=== PATIENT | male | born 1960 | race African-American/Black ===

== ENCOUNTER 2019-03-21 18:32 | Inpatient (IN) ==
[2019-03-22 00:50] LABS: Basophils # 0.1 10*3/uL (0.0-0.2); Basophils % 0.5 % (0.0-0.8); Eosinophils # 0.7 10*3/uL (0.0-0.87); Eosinophils % 4.7 % (0.00-10.9); Hematocrit 31.7 VOL% (42.0-52.0); Hemoglobin 9.9 GM/DL (14.0-18.0); Immature Granulocytes % 0.7 %; Lymphocytes # 1.1 10*3/uL (1.4-4.0); Lymphocytes % 7.2 % (21.2-54.2); Mean Corpuscular HGB Conc 31.2 GM/DL (32-36); Mean Corpuscular Volume 91.4 FL (87-102); Monocytes % 4.5 % (1.7-12.7); Neutrophils % 82.4 % (38.7-73.9); Platelet Count 174 T/CUMM (130-400); Red Blood Count 3.47 MC/CUMM (3.8-5.5); Red Cell Distribution Width 16.5 % (9.3-17.3); White Blood Count 14.6 T/CUMM (4-12)
[2019-03-22 01:18] LABS: Calcium 7.4 MG/DL (8.5-10.1); Osmolality,Calculated 311.4 MOS/KG (273-304)
[2019-03-22 01:21] LABS: CKMB % 1.8 %; Troponin I 0.041 NG/ML (0.00-0.045)
[2019-03-22] MEDS ORDERED: INSULIN REGULAR 100 UNIT/ML IV ONE ×2 (01:56→03:04)
[2019-03-22] MEDS ORDERED: FUROSEMIDE 100 MG/10 ML VIAL IV STA (01:56)
[2019-03-22] MEDS ORDERED: LEVOFLOXACIN INJ 750 MG in PREMIX 1 EACH IV STA (01:57)
[2019-03-22] MEDS ORDERED: FUROSEMIDE 40 MG/4 ML VIAL ONE (02:01)
[2019-03-22 02:33] LABS: Apearance,Urine CLEAR (Clear); Bacteria,Urine Occasional /HPF (Few); Bilirubin,Urine Negative (Negative); Blood, Urine Moderate mg/dL (Negative); Glucose,Urine (UA) >=500 mg/dL (Negative); Ketones,Urine 20 mg/dL (Negative); Mucus,Urine Occasional /LPF (Occasional); Nitrite,Urine Negative (Negative); Protein,Urine 30 MG/DL; RBC,Urine 1 /HPF (0-4); Squamous Epithelial Cell,Urine Occasional /HPF (0-10); Urine Color Straw (Yellow); Urine Specific Gravity 1.018 (1.001-1.035); Urine Urobilinogen < 2.0 EU/DL (0.2-1.0); WBC,Urine 1 /HPF (0-6)
[2019-03-22 02:52] LABS: Barbiturates Screen,Urine Negative (Negative); Benzodiazepines Screen,Urine Negative (Negative); Cannabinoid Screen,Urine Negative (Negative); Opiate Screen,Urine Negative (Negative); Phencyclidine Screen,Urine Negative (Negative)
[2019-03-22] MEDS ORDERED: POTASSIUM CHLORIDE RIDER 10 MEQ in PREMIX 1 EACH IV PRN ×2 (03:04→05:16)
[2019-03-22] MEDS ORDERED: SODIUM CHLORIDE 0.9% 1,000 ML IV ONE (03:04)
[2019-03-22] MEDS ORDERED: SODIUM BICARB INJ 100 MEQ in STERILE WATER INJ 400 ML IV PRN (03:04)
[2019-03-22] MEDS ORDERED: SODIUM PHOSPHATE INJ 23.8 MMOL in SODIUM CHLORIDE 0.9% 250 ML IV PRN (03:04)
[2019-03-22] MEDS ORDERED: MAGNESIUM SULF RIDER 4 GM in PREMIX 1 EACH IV PRN (03:04)
[2019-03-22] MEDS ORDERED: DEXTROSE 10% 250 ML BAG IV PRN ×2 (03:04)
[2019-03-22 03:16] LABS: ABG Base Excess -12.6 MMOL/L (-2.5-2.5); ABG HCO3 14.4 MMOL/L (20-26); ABG Oxygen Saturation 85.8 % (95-100); ABG PCO2 24.6 MM HG (35-48); ABG PH 7.313 (7.35-7.45); ABG PO2 53.8 MM HG (80-95); ABG TCO2 11.5 MMOL/L (23-27); Allen Test Positive
[2019-03-22 03:30] LABS: Osmolality,Calculated 310.1 MOS/KG (273-304)
[2019-03-22] MEDS ORDERED: INSULIN REGULAR DRIP 100 ML IV SCH (03:30)
[2019-03-22 03:38] LABS: Calcium 7.1 MG/DL (8.5-10.1)
[2019-03-22] MEDS ORDERED: INFLUENZA VIRUS VACCINE 0.5 ML SYRINGE IM ONE (04:10)
[2019-03-22 04:28] LABS: Basophils # 0.1 10*3/uL (0.0-0.2); Basophils % 0.4 % (0.0-0.8); Eosinophils # 0.5 10*3/uL (0.0-0.87); Eosinophils % 3.1 % (0.00-10.9); Hematocrit 29.9 VOL% (42.0-52.0); Hemoglobin 9.6 GM/DL (14.0-18.0); Immature Granulocytes % 0.4 %; Immature Granulocytes Absolute 0.06 #; Lymphocytes % 5.9 % (21.2-54.2); Mean Corpuscular HGB Conc 32.1 GM/DL (32-36); Mean Corpuscular Volume 89.3 FL (87-102); Neutrophils % 85.2 % (38.7-73.9); Platelet Count 169 T/CUMM (130-400); Red Blood Count 3.35 MC/CUMM (3.8-5.5); Red Cell Distribution Width 16.2 % (9.3-17.3); White Blood Count 16.9 T/CUMM (4-12)
[2019-03-22 04:54] LABS: Apearance,Urine CLEAR (Clear); Bacteria,Urine Occasional /HPF (Few); Bilirubin,Urine Negative (Negative); Blood, Urine Small mg/dL (Negative); Glucose,Urine (UA) >=500 mg/dL (Negative); Ketones,Urine 5 mg/dL (Negative); Mucus,Urine Occasional /LPF (Occasional); Nitrite,Urine Negative (Negative); Protein,Urine Negative; RBC,Urine 1 /HPF (0-4); Urine Color Colorless (Yellow); Urine Specific Gravity 1.007 (1.001-1.035); Urine Urobilinogen < 2.0 EU/DL (0.2-1.0); WBC,Urine <1 /HPF (0-6)
[2019-03-22 04:59] LABS: Calcium 7.1 MG/DL (8.5-10.1); Osmolality,Calculated 305.1 MOS/KG (273-304)
[2019-03-22] MEDS: SODIUM CHLORIDE 0.9% 1,000 ML IV SCH ×2 (05:12→07:11)
[2019-03-22] MEDS: POTASSIUM CHLORIDE RIDER 20 MEQ in PREMIX 1 EACH IV PRN ×2 (05:43→09:31)
[2019-03-22 05:52] LABS: ABG Base Excess -9.9 MMOL/L (-2.5-2.5); ABG HCO3 16.4 MMOL/L (20-26); ABG Oxygen Saturation 93.8 % (95-100); ABG PCO2 27.9 MM HG (35-48); ABG PH 7.334 (7.35-7.45); ABG PO2 69.5 MM HG (80-95); ABG TCO2 13.8 MMOL/L (23-27); Allen Test Positive; Pt O2 Delivery Device Venturi Mask
[2019-03-22] MEDS ORDERED: SODIUM CHLORIDE 0.9% 1,000 ML IV SCH (08:05)
[2019-03-22 08:17] LABS: Pt O2 Delivery Device Venturi Mask
[2019-03-22 08:18] LABS: ABG HCO3 18.7 MMOL/L (20-26); ABG Oxygen Saturation 99.3 % (95-100); ABG PCO2 36.4 MM HG (35-48); ABG PH 7.314 (7.35-7.45); ABG TCO2 17.3 MMOL/L (23-27)
[2019-03-22] MEDS: FUROSEMIDE 40 MG/4 ML VIAL IV SCH ×2 (08:20→16:19)
[2019-03-22 08:49] LABS: Calcium 6.8 MG/DL (8.5-10.1); Osmolality,Calculated 302.3 MOS/KG (273-304)
[2019-03-22 10:24] LABS: ABG Base Excess -5.3 MMOL/L (-2.5-2.5); ABG HCO3 19.9 MMOL/L (20-26); ABG Oxygen Saturation 87.9 % (95-100); ABG PCO2 33.9 MM HG (35-48); ABG PH 7.366 (7.35-7.45); ABG PO2 52.6 MM HG (80-95)
[2019-03-22 12:13] LABS: Osmolality,Calculated 286.7 MOS/KG (273-304)
[2019-03-22] MEDS ORDERED: SODIUM CHLOR 0.9% KCL 20 MEQ 20 MEQ/1,000 ML BAG IV SCH (13:30)
[2019-03-22] MEDS ORDERED: SKIN HEALING OINT (AQUAPHOR) 50 GM TUBE TOP PRN (14:21)
[2019-03-22 15:33] LABS: Calcium 6.7 MG/DL (8.5-10.1); Osmolality,Calculated 286.4 MOS/KG (273-304)
[2019-03-22] MEDS: INSULIN LISPRO 100 UNIT/ML SUBCUT SCH ×2 (17:00→21:20)
[2019-03-22] MEDS ORDERED: SODIUM CHLORIDE 0.45% 1,000 ML IV SCH (20:05)
[2019-03-22 20:07] LABS: Calcium 6.8 MG/DL (8.5-10.1); Osmolality,Calculated 289.1 MOS/KG (273-304)
[2019-03-22] MEDS ORDERED: QUEtiapine 100 MG TABLET PO SCH (21:00)
[2019-03-22] MEDS: INSULIN GLARGINE 100 UNIT/ML SUBCUT SCH (21:19)
[2019-03-22 23:57] LABS: Calcium 6.7 MG/DL (8.5-10.1); Osmolality,Calculated 290.1 MOS/KG (273-304)
[2019-03-23 05:14] LABS: ABG Base Excess -4.8 MMOL/L (-2.5-2.5); ABG HCO3 20.2 MMOL/L (20-26); ABG Oxygen Saturation 81.4 % (95-100); ABG PCO2 34.4 MM HG (35-48); ABG PH 7.369 (7.35-7.45); ABG PO2 46.4 MM HG (80-95); ABG TCO2 18.6 MMOL/L (23-27); Allen Test Positive
[2019-03-23 05:26] LABS: Calcium 6.7 MG/DL (8.5-10.1)
[2019-03-23 06:08] LABS: Allen Test Positive
[2019-03-23 06:14] LABS: ABG Base Excess -4.3 MMOL/L (-2.5-2.5); ABG HCO3 20.8 MMOL/L (20-26); ABG Oxygen Saturation 97.3 % (95-100); ABG PCO2 34.3 MM HG (35-48); ABG PH 7.378 (7.35-7.45); ABG PO2 85.5 MM HG (80-95); ABG TCO2 18.9 MMOL/L (23-27)
[2019-03-23] MEDS: PIOGLITAZONE 15 MG TABLET PO SCH (09:07)
[2019-03-23] MEDS: INSULIN LISPRO 100 UNIT/ML SUBCUT SCH ×4 (09:07→20:15)
[2019-03-23] MEDS: cefTRIAXone 1,000 MG in SYRINGE 1 EACH IV SCH (09:07)
[2019-03-23] MEDS ORDERED: FUROSEMIDE 40 MG/4 ML VIAL IV ONE (09:35)
[2019-03-23] MEDS: AZITHROMYCIN INJ 250 MG in SODIUM CHLORIDE 0.9% 150 ML IV SCH (10:31)
[2019-03-23 12:15] LABS: Basophils % 0.2 % (0.0-0.8); Eosinophils # 1.9 10*3/uL (0.0-0.87); Eosinophils % 14.1 % (0.00-10.9); Hematocrit 26.2 VOL% (42.0-52.0); Hemoglobin 8.5 GM/DL (14.0-18.0); Immature Granulocytes % 0.4 %; Immature Granulocytes Absolute 0.05 #; Lymphocytes # 0.8 10*3/uL (1.4-4.0); Lymphocytes % 6.2 % (21.2-54.2); Mean Corpuscular HGB Conc 32.4 GM/DL (32-36); Mean Corpuscular Volume 87.6 FL (87-102); Monocytes % 4.6 % (1.7-12.7); Neutrophils % 74.5 % (38.7-73.9); Platelet Count 140 T/CUMM (130-400); Red Blood Count 2.99 MC/CUMM (3.8-5.5); White Blood Count 13.2 T/CUMM (4-12)
[2019-03-23 14:02] LABS: Eosinophils 12 % (0-10); Lymphocytes 5 % (20-55); Segmented Neutrophils 80 % (50-85); Total Cells Counted 100
[2019-03-23 14:03] LABS: Acanthocytes 1+; Anisocytosis 1+; Atypical Lymphocytes 1+; Platelet Estimate Adequate; Poikilocytosis 1+
[2019-03-23 16:26] LABS: ABG Base Excess -3.5 MMOL/L (-2.5-2.5); ABG HCO3 21.4 MMOL/L (20-26); ABG Oxygen Saturation 92.7 % (95-100); ABG PCO2 36.4 MM HG (35-48); ABG PH 7.375 (7.35-7.45); ABG PO2 64.4 MM HG (80-95); ABG TCO2 19.9 MMOL/L (23-27); Pt O2 Delivery Device BIPAP
[2019-03-23] MEDS: GABAPENTIN 300 MG CAPSULE PO SCH (20:15)
[2019-03-23] MEDS: SUCRALFATE 1 GM TABLET PO SCH (20:15)
[2019-03-23] MEDS: INSULIN GLARGINE 100 UNIT/ML SUBCUT SCH (20:15)
[2019-03-23] MEDS: DOCUSATE SODIUM 100 MG CAPSULE PO SCH (20:15)
[2019-03-24] MEDS ORDERED: FUROSEMIDE 40 MG/4 ML VIAL IV ONE (00:14)
[2019-03-24 01:31] LABS: ABG Base Excess -4.6 MMOL/L (-2.5-2.5); ABG HCO3 20.6 MMOL/L (20-26); ABG Oxygen Saturation 95.2 % (95-100); ABG PCO2 39.6 MM HG (35-48); ABG PH 7.332 (7.35-7.45); ABG PO2 75.8 MM HG (80-95); ABG TCO2 19.5 MMOL/L (23-27); Allen Test Positive; Pt O2 Delivery Device Other
[2019-03-24 04:34] LABS: Basophils % 0.3 % (0.0-0.8); Eosinophils # 2.4 10*3/uL (0.0-0.87); Eosinophils % 22.5 % (0.00-10.9); Hemoglobin 7.9 GM/DL (14.0-18.0); Immature Granulocytes % 0.3 %; Immature Granulocytes Absolute 0.03 #; Lymphocytes % 9.6 % (21.2-54.2); Mean Corpuscular HGB Conc 31.6 GM/DL (32-36); Mean Corpuscular Volume 89.6 FL (87-102); Mean Platelet Volume 12.1 FL (9.6-12.0); Monocytes % 3.7 % (1.7-12.7); Neutrophils % 63.6 % (38.7-73.9); Platelet Count 131 T/CUMM (130-400); Red Blood Count 2.79 MC/CUMM (3.8-5.5); Red Cell Distribution Width 17.4 % (9.3-17.3); White Blood Count 10.5 T/CUMM (4-12)
[2019-03-24 04:59] LABS: Eosinophils 22 % (0-10); Lymphocytes 10 % (20-55); Platelet Estimate Decreased; Segmented Neutrophils 66 % (50-85); Total Cells Counted 100
[2019-03-24] MEDS: PENTOXIFYLLINE 400 MG TABLET PO SCH ×3 (08:32→16:44)
[2019-03-24] MEDS: SUCRALFATE 1 GM TABLET PO SCH ×4 (08:33→21:55)
[2019-03-24] MEDS: GABAPENTIN 300 MG CAPSULE PO SCH ×4 (08:33→21:56)
[2019-03-24] MEDS: DOCUSATE SODIUM 100 MG CAPSULE PO SCH ×2 (08:33→21:55)
[2019-03-24] MEDS: TAMSULOSIN 0.4 MG CAPSULE PO SCH (08:33)
[2019-03-24] MEDS: PIOGLITAZONE 15 MG TABLET PO SCH (08:33)
[2019-03-24] MEDS: INSULIN LISPRO 100 UNIT/ML SUBCUT SCH ×4 (08:33→21:56)
[2019-03-24] MEDS: cefTRIAXone 1,000 MG in SYRINGE 1 EACH IV SCH (08:35)
[2019-03-24 10:07] LABS: ABG Base Excess -5.5 MMOL/L (-2.5-2.5); ABG HCO3 20.2 MMOL/L (20-26); ABG Oxygen Saturation 96.6 % (95-100); ABG PCO2 40.2 MM HG (35-48); ABG PH 7.318 (7.35-7.45); ABG PO2 92.3 MM HG (80-95); ABG TCO2 21.4 MMOL/L (23-27); Pt O2 Delivery Device Other
[2019-03-24] MEDS: methylPREDNISolone SOD SUC 40 MG/1 ML VIAL IV SCH ×3 (11:29→21:56)
[2019-03-24] MEDS: LACTATED RINGERS 1,000 ML IV SCH (11:31)
[2019-03-24] MEDS: AZITHROMYCIN INJ 250 MG in SODIUM CHLORIDE 0.9% 150 ML IV SCH (11:57)
[2019-03-24 12:29] LABS: HIV Antigen/Antibody Result Nonreactive (Nonreactive)
[2019-03-24] MEDS: INSULIN GLARGINE 100 UNIT/ML SUBCUT SCH (21:56)
[2019-03-25] MEDS: LACTATED RINGERS 1,000 ML IV SCH ×3 (03:00→17:49)
[2019-03-25] MEDS: ALBUTEROL/IPRATROPIUM 3 ML NEB RESP TX PRN ×2 (03:14→03:23)
[2019-03-25 04:41] LABS: Hematocrit 25.8 VOL% (42.0-52.0); Immature Granulocytes % 0.3 %; Immature Granulocytes Absolute 0.02 #; Lymphocytes # 0.7 10*3/uL (1.4-4.0); Lymphocytes % 10.7 % (21.2-54.2); Mean Corpuscular Volume 90.2 FL (87-102); Mean Platelet Volume 12.3 FL (9.6-12.0); Monocytes % 0.3 % (1.7-12.7); Neutrophils % 88.7 % (38.7-73.9); Platelet Count 138 T/CUMM (130-400); Red Blood Count 2.86 MC/CUMM (3.8-5.5); Red Cell Distribution Width 17.3 % (9.3-17.3); White Blood Count 6.3 T/CUMM (4-12)
[2019-03-25] MEDS: methylPREDNISolone SOD SUC 40 MG/1 ML VIAL IV SCH ×4 (05:09→21:57)
[2019-03-25] MEDS: MAGNESIUM SULF RIDER 2 GM in PREMIX 1 EACH IV PRN (05:22)
[2019-03-25 06:12] LABS: Calcium 7.1 MG/DL (8.5-10.1)
[2019-03-25 06:14] LABS: Albumin 1.3 G/DL (3.4-5.0); Blood Urea Nitrogen 26 MG/DL (7-18); Glucose 337 MG/DL (74-106); Osmolality,Calculated 303.8 MOS/KG (273-304)
[2019-03-25 06:16] LABS: Alanine Aminotransferase 15 U/L (16-61); Aspartate Amino Transferase 18 U/L (0-37); Estimated Glom Filtration Rate 30 ML/MIN
[2019-03-25 06:18] LABS: Bilirubin,Total < 0.39 MG/DL (0.2-1.0); Total Protein 5.8 G/DL (6.4-8.3)
[2019-03-25 06:19] LABS: Alkaline Phosphatase 129 U/L (45-117)
[2019-03-25] MEDS: TAMSULOSIN 0.4 MG CAPSULE PO SCH (08:56)
[2019-03-25] MEDS: DOCUSATE SODIUM 100 MG CAPSULE PO SCH ×2 (08:56→21:59)
[2019-03-25] MEDS: GABAPENTIN 300 MG CAPSULE PO SCH ×4 (08:56→21:59)
[2019-03-25] MEDS: PENTOXIFYLLINE 400 MG TABLET PO SCH ×3 (08:56→16:12)
[2019-03-25] MEDS: SUCRALFATE 1 GM TABLET PO SCH ×4 (08:57→21:59)
[2019-03-25] MEDS: INSULIN LISPRO 100 UNIT/ML SUBCUT SCH ×2 (08:57→12:00)
[2019-03-25] MEDS: cefTRIAXone 1,000 MG in SYRINGE 1 EACH IV SCH (08:57)
[2019-03-25] MEDS: PIOGLITAZONE 15 MG TABLET PO SCH (08:57)
[2019-03-25] MEDS: AZITHROMYCIN INJ 250 MG in SODIUM CHLORIDE 0.9% 150 ML IV SCH (10:49)
[2019-03-25] MEDS: INSULIN REGULAR DRIP 100 ML IV PRN ×2 (12:01→23:13)
[2019-03-25] MEDS: SODIUM CHLORIDE 0.45% 1,000 ML IV SCH (17:48)
[2019-03-25] MEDS: INSULIN GLARGINE 100 UNIT/ML SUBCUT SCH (21:58)
[2019-03-25] MEDS: MENTHOL/ZINC OXIDE OINT 71 GM JAR TOP SCH (22:10)
[2019-03-26] MEDS: methylPREDNISolone SOD SUC 40 MG/1 ML VIAL IV SCH ×4 (04:35→22:17)
[2019-03-26 05:44] LABS: Hematocrit 26.5 VOL% (42.0-52.0); Hemoglobin 8.3 GM/DL (14.0-18.0); Immature Granulocytes % 0.6 %; Immature Granulocytes Absolute 0.06 #; Lymphocytes # 0.9 10*3/uL (1.4-4.0); Lymphocytes % 9.6 % (21.2-54.2); Mean Corpuscular HGB Conc 31.3 GM/DL (32-36); Mean Platelet Volume 12.2 FL (9.6-12.0); Neutrophils % 87.8 % (38.7-73.9); Platelet Count 177 T/CUMM (130-400); Red Blood Count 2.88 MC/CUMM (3.8-5.5); Red Cell Distribution Width 17.2 % (9.3-17.3); White Blood Count 9.6 T/CUMM (4-12)
[2019-03-26 06:05] LABS: Calcium 7.1 MG/DL (8.5-10.1); Osmolality,Calculated 291.4 MOS/KG (273-304)
[2019-03-26 06:09] LABS: Albumin 1.4 G/DL (3.4-5.0); Bilirubin,Total 0.4 MG/DL (0.2-1.0); Calcium 7.1 MG/DL (8.5-10.1); Osmolality,Calculated 287.7 MOS/KG (273-304); Total Protein 5.6 G/DL (6.4-8.3)
[2019-03-26] MEDS: PENTOXIFYLLINE 400 MG TABLET PO SCH ×3 (06:41→17:06)
[2019-03-26] MEDS: SUCRALFATE 1 GM TABLET PO SCH ×4 (06:41→21:08)
[2019-03-26] MEDS: SODIUM CHLORIDE 0.45% 1,000 ML IV SCH ×2 (06:42→21:09)
[2019-03-26] MEDS: cefTRIAXone 1,000 MG in SYRINGE 1 EACH IV SCH (08:24)
[2019-03-26] MEDS: PIOGLITAZONE 15 MG TABLET PO SCH (08:24)
[2019-03-26] MEDS: GABAPENTIN 300 MG CAPSULE PO SCH ×4 (08:24→21:09)
[2019-03-26] MEDS: TAMSULOSIN 0.4 MG CAPSULE PO SCH (08:24)
[2019-03-26] MEDS: MENTHOL/ZINC OXIDE OINT 71 GM JAR TOP SCH ×2 (08:25→21:08)
[2019-03-26] MEDS: DOCUSATE SODIUM 100 MG CAPSULE PO SCH ×2 (08:25→21:08)
[2019-03-26] MEDS: AZITHROMYCIN INJ 250 MG in SODIUM CHLORIDE 0.9% 150 ML IV SCH (10:23)
[2019-03-26] MEDS ORDERED: SODIUM POLYSTYRENE SULFATE 15 GM/60 ML BOTTLE PO ONE (13:30)
[2019-03-26 14:30] LABS: Myeloperoxidase Antibody < 0.2 U
[2019-03-26 19:11] LABS: Calcium 7.1 MG/DL (8.5-10.1); Osmolality,Calculated 289.3 MOS/KG (273-304)
[2019-03-27] MEDS: methylPREDNISolone SOD SUC 40 MG/1 ML VIAL IV SCH ×4 (04:36→21:33)
[2019-03-27 05:27] LABS: Eosinophils % 0.1 % (0.00-10.9); Hematocrit 26.1 VOL% (42.0-52.0); Hemoglobin 8.1 GM/DL (14.0-18.0); Immature Granulocytes % 0.3 %; Immature Granulocytes Absolute 0.02 #; Lymphocytes # 0.7 10*3/uL (1.4-4.0); Lymphocytes % 8.9 % (21.2-54.2); Mean Corpuscular Volume 90.9 FL (87-102); Mean Platelet Volume 11.9 FL (9.6-12.0); Monocytes % 5.2 % (1.7-12.7); NRBC # 0.02 10*3/uL; Neutrophils % 85.5 % (38.7-73.9); Platelet Count 189 T/CUMM (130-400); Red Blood Count 2.87 MC/CUMM (3.8-5.5); Red Cell Distribution Width 17.2 % (9.3-17.3); White Blood Count 7.6 T/CUMM (4-12)
[2019-03-27 05:42] LABS: Osmolality,Calculated 288.4 MOS/KG (273-304)
[2019-03-27 05:44] LABS: Alanine Aminotransferase 13 U/L (16-61); Albumin 1.3 G/DL (3.4-5.0); Alkaline Phosphatase 110 U/L (45-117); Aspartate Amino Transferase 16 U/L (0-37); Bilirubin,Total < 0.39 MG/DL (0.2-1.0); Blood Urea Nitrogen 44 MG/DL (7-18); Calcium 6.7 MG/DL (8.5-10.1); Estimated Glom Filtration Rate 27 ML/MIN; Glucose 84 MG/DL (74-106); Osmolality,Calculated 290.3 MOS/KG (273-304); Total Protein 5.3 G/DL (6.4-8.3)
[2019-03-27] MEDS: PENTOXIFYLLINE 400 MG TABLET PO SCH ×3 (07:13→17:41)
[2019-03-27] MEDS: SUCRALFATE 1 GM TABLET PO SCH ×4 (07:13→20:05)
[2019-03-27] MEDS: DOCUSATE SODIUM 100 MG CAPSULE PO SCH ×2 (08:24→20:06)
[2019-03-27] MEDS: GABAPENTIN 300 MG CAPSULE PO SCH ×4 (08:24→20:05)
[2019-03-27] MEDS: cefTRIAXone 1,000 MG in SYRINGE 1 EACH IV SCH (08:25)
[2019-03-27] MEDS: TAMSULOSIN 0.4 MG CAPSULE PO SCH (08:25)
[2019-03-27] MEDS: SODIUM CHLORIDE 0.45% 1,000 ML IV SCH ×3 (09:19→23:22)
[2019-03-27] MEDS: MENTHOL/ZINC OXIDE OINT 71 GM JAR TOP SCH ×2 (09:55→20:06)
[2019-03-27] MEDS: AZITHROMYCIN INJ 250 MG in SODIUM CHLORIDE 0.9% 150 ML IV SCH (12:22)
[2019-03-27] MEDS: INSULIN REGULAR DRIP 100 ML IV PRN (13:46)
[2019-03-27] MEDS ORDERED: LORazepam 2 MG/1 ML VIAL IV ONE (16:59)
[2019-03-28 03:14] LABS: Hematocrit 27.6 VOL% (42.0-52.0); Hemoglobin 8.5 GM/DL (14.0-18.0); Immature Granulocytes % 0.3 %; Immature Granulocytes Absolute 0.02 #; Lymphocytes # 0.7 10*3/uL (1.4-4.0); Lymphocytes % 10.9 % (21.2-54.2); Mean Corpuscular HGB Conc 30.8 GM/DL (32-36); Mean Platelet Volume 11.3 FL (9.6-12.0); Monocytes % 7.7 % (1.7-12.7); Neutrophils % 81.1 % (38.7-73.9); Platelet Count 185 T/CUMM (130-400); Red Cell Distribution Width 17.2 % (9.3-17.3); White Blood Count 6.8 T/CUMM (4-12)
[2019-03-28 03:37] LABS: Alanine Aminotransferase 12 U/L (16-61); Albumin 1.4 G/DL (3.4-5.0); Alkaline Phosphatase 109 U/L (45-117); Aspartate Amino Transferase 14 U/L (0-37); Bilirubin,Total < 0.39 MG/DL (0.2-1.0); Blood Urea Nitrogen 45 MG/DL (7-18); Estimated Glom Filtration Rate 30 ML/MIN; Glucose 104 MG/DL (74-106); Osmolality,Calculated 292.3 MOS/KG (273-304); Total Protein 5.9 G/DL (6.4-8.3)
[2019-03-28] MEDS: methylPREDNISolone SOD SUC 40 MG/1 ML VIAL IV SCH ×4 (04:25→22:07)
[2019-03-28] MEDS: SUCRALFATE 1 GM TABLET PO SCH ×4 (07:25→20:26)
[2019-03-28] MEDS: PENTOXIFYLLINE 400 MG TABLET PO SCH ×3 (07:25→16:25)
[2019-03-28] MEDS: cefTRIAXone 1,000 MG in SYRINGE 1 EACH IV SCH (08:30)
[2019-03-28] MEDS ORDERED: fentaNYL 100 MCG/2 ML VIAL IV ONE ×2 (08:48→09:25)
[2019-03-28] MEDS ORDERED: MIDAZOLAM 2 MG/2 ML VIAL ONE (08:57)
[2019-03-28] MEDS: DOCUSATE SODIUM 100 MG CAPSULE PO SCH ×2 (09:00→20:46)
[2019-03-28] MEDS: TAMSULOSIN 0.4 MG CAPSULE PO SCH (09:00)
[2019-03-28] MEDS: GABAPENTIN 300 MG CAPSULE PO SCH ×4 (09:00→20:46)
[2019-03-28] MEDS ORDERED: LIDOCAINE 1% 20 ML VIAL RESP TX ONE (09:19)
[2019-03-28] MEDS ORDERED: LIDOCAINE 2% TOP JELLY 5 ML TUBE TOP ONE (09:19)
[2019-03-28] MEDS ORDERED: MIDAZOLAM 2 MG/2 ML VIAL IV ONE (09:27)
[2019-03-28] MEDS ORDERED: EPINEPHrine 1 MG/ML VIAL ET ONE (09:30)
[2019-03-28] MEDS ORDERED: LIDOCAINE 1% 50 ML VIAL MISC INJ ONE (09:30)
[2019-03-28] MEDS ORDERED: EPINEPHrine 1 MG/ML VIAL ONE (10:20)
[2019-03-28] MEDS: AZITHROMYCIN INJ 250 MG in SODIUM CHLORIDE 0.9% 150 ML IV SCH (10:20)
[2019-03-28] MEDS: MENTHOL/ZINC OXIDE OINT 71 GM JAR TOP SCH ×2 (10:30→20:26)
[2019-03-28] MEDS: SODIUM CHLORIDE 0.45% 1,000 ML IV SCH (11:30)
[2019-03-28] MEDS: VANCOMYCIN INJ 1,250 MG in SODIUM CHLORIDE 0.9% 250 ML IV SCH (14:15)
[2019-03-28] MEDS: INSULIN REGULAR DRIP 100 ML IV PRN (22:20)
[2019-03-29] MEDS: SODIUM CHLORIDE 0.45% 1,000 ML IV SCH ×3 (03:18→15:20)
[2019-03-29] MEDS: methylPREDNISolone SOD SUC 40 MG/1 ML VIAL IV SCH ×4 (04:22→22:24)
[2019-03-29 04:36] LABS: Hematocrit 25.8 VOL% (42.0-52.0); Hemoglobin 8.1 GM/DL (14.0-18.0); Immature Granulocytes % 0.8 %; Immature Granulocytes Absolute 0.05 #; Lymphocytes # 0.6 10*3/uL (1.4-4.0); Lymphocytes % 9.6 % (21.2-54.2); Mean Corpuscular HGB Conc 31.4 GM/DL (32-36); Mean Corpuscular Volume 90.8 FL (87-102); Mean Platelet Volume 10.9 FL (9.6-12.0); Monocytes % 5.3 % (1.7-12.7); Neutrophils % 84.3 % (38.7-73.9); Platelet Count 195 T/CUMM (130-400); Red Blood Count 2.84 MC/CUMM (3.8-5.5); White Blood Count 6.3 T/CUMM (4-12)
[2019-03-29 04:54] LABS: Alanine Aminotransferase 16 U/L (16-61); Albumin 1.4 G/DL (3.4-5.0); Alkaline Phosphatase 115 U/L (45-117); Aspartate Amino Transferase 19 U/L (0-37); Bilirubin,Total < 0.39 MG/DL (0.2-1.0); Blood Urea Nitrogen 44 MG/DL (7-18); Calcium 6.7 MG/DL (8.5-10.1); Estimated Glom Filtration Rate 40 ML/MIN; Glucose 119 MG/DL (74-106); Osmolality,Calculated 294.1 MOS/KG (273-304); Total Protein 5.6 G/DL (6.4-8.3)
[2019-03-29] MEDS: SUCRALFATE 1 GM TABLET PO SCH ×4 (07:55→21:20)
[2019-03-29] MEDS: PENTOXIFYLLINE 400 MG TABLET PO SCH ×3 (07:55→16:15)
[2019-03-29] MEDS: INSULIN LISPRO 100 UNIT/ML SUBCUT SCH ×4 (08:40→21:18)
[2019-03-29] MEDS: TAMSULOSIN 0.4 MG CAPSULE PO SCH (08:40)
[2019-03-29] MEDS: GABAPENTIN 300 MG CAPSULE PO SCH ×4 (08:40→21:20)
[2019-03-29] MEDS: DOCUSATE SODIUM 100 MG CAPSULE PO SCH ×2 (08:40→21:20)
[2019-03-29] MEDS: cefTRIAXone 1,000 MG in SYRINGE 1 EACH IV SCH (08:50)
[2019-03-29] MEDS: FLUCONAZOLE INJ 400 MG in PREMIX 1 EACH IV SCH (09:10)
[2019-03-29] MEDS: AZITHROMYCIN INJ 250 MG in SODIUM CHLORIDE 0.9% 150 ML IV SCH (10:05)
[2019-03-29] MEDS: MENTHOL/ZINC OXIDE OINT 71 GM JAR TOP SCH ×2 (10:30→21:21)
[2019-03-29] MEDS: VANCOMYCIN INJ 1,250 MG in SODIUM CHLORIDE 0.9% 250 ML IV SCH (15:00)
[2019-03-29 16:06] LABS: Fungitell Quantitative Value 197 pg/mL (<60 pg/mL)
[2019-03-29] MEDS ORDERED: ZIPRASIDONE 20 MG/1 ML VIAL IM ONE (20:37)
[2019-03-29] MEDS ORDERED: diphenhydrAMINE 50 MG/1 ML VIAL IV ONE (20:37)
[2019-03-30] MEDS: INSULIN LISPRO 100 UNIT/ML SUBCUT SCH ×6 (01:49→20:45)
[2019-03-30] MEDS: ENOXAPARIN 40 MG/0.4 ML SYRINGE SUBCUT SCH ×2 (01:49→22:49)
[2019-03-30] MEDS: ATORVASTATIN 40 MG TABLET PO SCH ×2 (01:49→20:49)
[2019-03-30] MEDS: methylPREDNISolone SOD SUC 40 MG/1 ML VIAL IV SCH ×4 (04:36→22:49)
[2019-03-30] MEDS: SODIUM CHLORIDE 0.45% 1,000 ML IV SCH ×2 (04:38→21:49)
[2019-03-30 07:03] LABS: Hematocrit 25.1 VOL% (42.0-52.0); Hemoglobin 7.7 GM/DL (14.0-18.0); Immature Granulocytes Absolute 0.07 #; Lymphocytes # 0.7 10*3/uL (1.4-4.0); Lymphocytes % 10.6 % (21.2-54.2); Mean Corpuscular HGB Conc 30.7 GM/DL (32-36); Mean Corpuscular Volume 89.3 FL (87-102); Mean Platelet Volume 11.2 FL (9.6-12.0); Monocytes % 7.7 % (1.7-12.7); Neutrophils % 80.7 % (38.7-73.9); Platelet Count 214 T/CUMM (130-400); Red Blood Count 2.81 MC/CUMM (3.8-5.5); Red Cell Distribution Width 16.9 % (9.3-17.3); White Blood Count 6.8 T/CUMM (4-12)
[2019-03-30 07:37] LABS: Albumin 1.5 G/DL (3.4-5.0); Bilirubin,Total 0.5 MG/DL (0.2-1.0); Calcium 6.7 MG/DL (8.5-10.1); Osmolality,Calculated 305.4 MOS/KG (273-304); Total Protein 5.6 G/DL (6.4-8.3)
[2019-03-30] MEDS ORDERED: LIPASE PROTEASE AMYLASE PO SCH (08:00)
[2019-03-30] MEDS: FUROSEMIDE 40 MG/4 ML VIAL IV SCH (08:38)
[2019-03-30] MEDS: TAMSULOSIN 0.4 MG CAPSULE PO SCH (08:39)
[2019-03-30] MEDS: DOCUSATE SODIUM 100 MG CAPSULE PO SCH ×2 (08:39→20:48)
[2019-03-30] MEDS: SUCRALFATE 1 GM TABLET PO SCH ×4 (08:39→20:47)
[2019-03-30] MEDS: GABAPENTIN 300 MG CAPSULE PO SCH ×4 (08:39→20:48)
[2019-03-30] MEDS: PENTOXIFYLLINE 400 MG TABLET PO SCH ×3 (08:39→17:01)
[2019-03-30] MEDS: MENTHOL/ZINC OXIDE OINT 71 GM JAR TOP SCH ×2 (08:40→22:49)
[2019-03-30] MEDS: FLUCONAZOLE INJ 400 MG in PREMIX 1 EACH IV SCH (08:40)
[2019-03-30 10:50] LABS: Lymphocytes 11 % (20-55); Myelocytes 2 %; Platelet Estimate Normal; Polychromasia Slight; Segmented Neutrophils 86 % (50-85); Total Cells Counted 100
[2019-03-30 10:51] LABS: Hypochromasia 2+; Microcytosis Slight
[2019-03-30] MEDS: VANCOMYCIN INJ 1,250 MG in SODIUM CHLORIDE 0.9% 250 ML IV SCH (15:04)
[2019-03-31] MEDS: INSULIN LISPRO 100 UNIT/ML SUBCUT SCH ×6 (00:43→21:32)
[2019-03-31] MEDS: methylPREDNISolone SOD SUC 40 MG/1 ML VIAL IV SCH ×2 (04:46→11:03)
[2019-03-31] MEDS: GABAPENTIN 300 MG CAPSULE PO SCH ×4 (08:13→21:33)
[2019-03-31] MEDS: FUROSEMIDE 40 MG/4 ML VIAL IV SCH (08:13)
[2019-03-31] MEDS: DOCUSATE SODIUM 100 MG CAPSULE PO SCH ×2 (08:13→21:33)
[2019-03-31] MEDS: TAMSULOSIN 0.4 MG CAPSULE PO SCH (08:14)
[2019-03-31] MEDS: MENTHOL/ZINC OXIDE OINT 71 GM JAR TOP SCH ×2 (08:15→21:41)
[2019-03-31] MEDS: FLUCONAZOLE INJ 400 MG in PREMIX 1 EACH IV SCH (08:15)
[2019-03-31] MEDS: PENTOXIFYLLINE 400 MG TABLET PO SCH ×3 (08:15→16:45)
[2019-03-31] MEDS: SUCRALFATE 1 GM TABLET PO SCH ×4 (08:15→21:33)
[2019-03-31] MEDS: MORPHINE 4 MG/1 ML VIAL IV PRN ×2 (13:06→21:28)
[2019-03-31 13:31] LABS: CMV PCR Source BRONCH LAVAGE
[2019-03-31] MEDS: SODIUM CHLORIDE 0.45% 1,000 ML IV SCH (14:01)
[2019-03-31] MEDS: VANCOMYCIN INJ 1,250 MG in SODIUM CHLORIDE 0.9% 250 ML IV SCH (15:35)
[2019-03-31] MEDS: predniSONE 20 MG TABLET PO SCH (17:30)
[2019-03-31] MEDS ORDERED: VANCOMYCIN INJ 1,250 MG in SODIUM CHLORIDE 0.9% 250 ML IV SCH (20:00)
[2019-03-31] MEDS: ATORVASTATIN 40 MG TABLET PO SCH (21:33)
[2019-04-01] MEDS: ENOXAPARIN 40 MG/0.4 ML SYRINGE SUBCUT SCH ×2 (00:05→21:06)
[2019-04-01] MEDS: INSULIN LISPRO 100 UNIT/ML SUBCUT SCH ×7 (00:40→23:48)
[2019-04-01] MEDS: MORPHINE 4 MG/1 ML VIAL IV PRN ×5 (01:32→23:49)
[2019-04-01] MEDS: SODIUM CHLORIDE 0.45% 1,000 ML IV SCH ×2 (04:26→21:05)
[2019-04-01 04:49] LABS: Basophils % 0.1 % (0.0-0.8); Hematocrit 26.8 VOL% (42.0-52.0); Hemoglobin 8.3 GM/DL (14.0-18.0); Immature Granulocytes % 2.4 %; Immature Granulocytes Absolute 0.19 #; Lymphocytes # 0.6 10*3/uL (1.4-4.0); Lymphocytes % 8.1 % (21.2-54.2); Mean Corpuscular Volume 88.4 FL (87-102); Mean Platelet Volume 11.2 FL (9.6-12.0); Monocytes % 6.5 % (1.7-12.7); NRBC # 0.04 10*3/uL; Neutrophils % 82.9 % (38.7-73.9); Platelet Count 211 T/CUMM (130-400); Red Blood Count 3.03 MC/CUMM (3.8-5.5); Red Cell Distribution Width 16.7 % (9.3-17.3); White Blood Count 7.8 T/CUMM (4-12)
[2019-04-01 05:07] LABS: Calcium 6.7 MG/DL (8.5-10.1); Osmolality,Calculated 290.3 MOS/KG (273-304)
[2019-04-01 07:46] LABS: Pneumocystis jiroveci Result Negative (Negative); Pneumocystis jiroveci Source BRONCH LAVAGE
[2019-04-01 08:03] LABS: Histo/Blasto PCR Result Negative; Histo/Blasto Source RIGHT LUNG SPECIMEN
[2019-04-01 08:03] LABS: Histo/Blasto PCR Result Negative; Histo/Blasto Source LEFT LUNG SPECIMEN
[2019-04-01] MEDS: SUCRALFATE 1 GM TABLET PO SCH ×4 (09:01→21:06)
[2019-04-01] MEDS: TAMSULOSIN 0.4 MG CAPSULE PO SCH (09:01)
[2019-04-01] MEDS: predniSONE 20 MG TABLET PO SCH (09:01)
[2019-04-01] MEDS: DOCUSATE SODIUM 100 MG CAPSULE PO SCH ×2 (09:02→21:06)
[2019-04-01] MEDS: GABAPENTIN 300 MG CAPSULE PO SCH ×4 (09:02→21:07)
[2019-04-01] MEDS: FUROSEMIDE 40 MG/4 ML VIAL IV SCH (09:03)
[2019-04-01] MEDS: MENTHOL/ZINC OXIDE OINT 71 GM JAR TOP SCH ×2 (09:05→21:07)
[2019-04-01] MEDS: FLUCONAZOLE INJ 400 MG in PREMIX 1 EACH IV SCH (09:12)
[2019-04-01] MEDS: PENTOXIFYLLINE 400 MG TABLET PO SCH ×3 (10:13→16:58)
[2019-04-01] MEDS ORDERED: INSULIN GLARGINE 100 UNIT/ML SUBCUT SCH (11:00)
[2019-04-01] MEDS: MEROPENEM 500 MG in SODIUM CHLORIDE 0.9% 100 ML IV SCH ×3 (11:30→21:05)
[2019-04-01] MEDS: ATORVASTATIN 40 MG TABLET PO SCH (21:06)
[2019-04-02] MEDS: MEROPENEM 500 MG in SODIUM CHLORIDE 0.9% 100 ML IV SCH ×4 (02:49→21:02)
[2019-04-02] MEDS: INSULIN LISPRO 100 UNIT/ML SUBCUT SCH ×7 (04:07→21:06)
[2019-04-02] MEDS ORDERED: NITROGLYCERIN SL 0.4 MG TABLET SL PRN (09:52)
[2019-04-02] MEDS: GABAPENTIN 300 MG CAPSULE PO SCH (10:41)
[2019-04-02] MEDS: AMIODARONE 200 MG TABLET PO SCH ×2 (10:44→21:04)
[2019-04-02] MEDS: METOPROLOL SUCCINATE XL 25 MG TABLET PO SCH ×2 (10:44→21:04)
[2019-04-02] MEDS: CLOPIDOGREL 75 MG TABLET PO SCH (10:44)
[2019-04-02] MEDS: predniSONE 20 MG TABLET PO SCH (10:44)
[2019-04-02] MEDS: FOLIC ACID 1 MG TABLET PO SCH (10:44)
[2019-04-02] MEDS: PENTOXIFYLLINE 400 MG TABLET PO SCH ×3 (10:44→15:54)
[2019-04-02] MEDS: SUCRALFATE 1 GM TABLET PO SCH ×4 (10:45→21:04)
[2019-04-02] MEDS: MENTHOL/ZINC OXIDE OINT 71 GM JAR TOP SCH ×2 (10:45→21:58)
[2019-04-02] MEDS: DOCUSATE SODIUM 100 MG CAPSULE PO SCH ×2 (10:45→21:04)
[2019-04-02] MEDS: ASPIRIN EC 81 MG TABLET PO SCH (10:45)
[2019-04-02] MEDS: FLUCONAZOLE INJ 400 MG in PREMIX 1 EACH IV SCH (10:45)
[2019-04-02] MEDS: TAMSULOSIN 0.4 MG CAPSULE PO SCH (10:45)
[2019-04-02] MEDS: MORPHINE 4 MG/1 ML VIAL IV PRN ×2 (10:49→20:01)
[2019-04-02] MEDS: INSULIN GLARGINE 100 UNIT/ML SUBCUT SCH (10:51)
[2019-04-02] MEDS: FUROSEMIDE 40 MG/4 ML VIAL IV SCH (10:52)
[2019-04-02] MEDS: GABAPENTIN 100 MG CAPSULE PO SCH ×2 (15:54→21:04)
[2019-04-02] MEDS: methylPREDNISolone SOD SUC 40 MG/1 ML VIAL IV SCH (15:57)
[2019-04-02] MEDS ORDERED: ATORVASTATIN 80 MG TABLET PO SCH (21:00)
[2019-04-02] MEDS: ENOXAPARIN 40 MG/0.4 ML SYRINGE SUBCUT SCH (21:05)
[2019-04-03] MEDS: MORPHINE 4 MG/1 ML VIAL IV PRN ×5 (00:15→21:59)
[2019-04-03] MEDS: methylPREDNISolone SOD SUC 40 MG/1 ML VIAL IV SCH ×3 (00:17→17:53)
[2019-04-03] MEDS: MEROPENEM 500 MG in SODIUM CHLORIDE 0.9% 100 ML IV SCH ×4 (04:16→21:18)
[2019-04-03] MEDS ORDERED: ITRACONAZOLE 100 MG CAPSULE PO SCH (09:00)
[2019-04-03] MEDS: FOLIC ACID 1 MG TABLET PO SCH (09:24)
[2019-04-03] MEDS: METOPROLOL SUCCINATE XL 25 MG TABLET PO SCH ×2 (09:24→21:16)
[2019-04-03] MEDS: AMIODARONE 200 MG TABLET PO SCH (09:24)
[2019-04-03] MEDS: GABAPENTIN 100 MG CAPSULE PO SCH ×3 (09:24→21:15)
[2019-04-03] MEDS: ASPIRIN EC 81 MG TABLET PO SCH (09:24)
[2019-04-03] MEDS: PENTOXIFYLLINE 400 MG TABLET PO SCH (09:25)
[2019-04-03] MEDS: TAMSULOSIN 0.4 MG CAPSULE PO SCH (09:25)
[2019-04-03] MEDS: FUROSEMIDE 40 MG/4 ML VIAL IV SCH (09:25)
[2019-04-03] MEDS: CLOPIDOGREL 75 MG TABLET PO SCH (09:25)
[2019-04-03] MEDS: DOCUSATE SODIUM 100 MG CAPSULE PO SCH ×2 (09:25→21:15)
[2019-04-03] MEDS: SUCRALFATE 1 GM TABLET PO SCH (09:25)
[2019-04-03] MEDS: THIAMINE 100 MG TABLET PO SCH (09:25)
[2019-04-03] MEDS: INSULIN GLARGINE 100 UNIT/ML SUBCUT SCH (09:26)
[2019-04-03] MEDS: INSULIN LISPRO 100 UNIT/ML SUBCUT SCH ×7 (09:26→21:56)
[2019-04-03] MEDS: MENTHOL/ZINC OXIDE OINT 71 GM JAR TOP SCH ×2 (10:01→21:59)
[2019-04-03] MEDS ORDERED: FUROSEMIDE 40 MG/4 ML VIAL IV ONE (11:30)
[2019-04-03] MEDS: ITRACONAZOLE 100 MG CAPSULE PO SCH ×2 (15:00→21:15)
[2019-04-03] MEDS: ENOXAPARIN 40 MG/0.4 ML SYRINGE SUBCUT SCH (21:24)
[2019-04-04] MEDS: methylPREDNISolone SOD SUC 40 MG/1 ML VIAL IV SCH (01:52)
[2019-04-04] MEDS: MORPHINE 4 MG/1 ML VIAL IV PRN ×6 (02:03→22:22)
[2019-04-04] MEDS: MEROPENEM 500 MG in SODIUM CHLORIDE 0.9% 100 ML IV SCH ×4 (03:20→21:09)
[2019-04-04] MEDS ORDERED: hydrALAZINE 20 MG/1 ML VIAL IV PRN (07:41)
[2019-04-04] MEDS: INSULIN LISPRO 100 UNIT/ML SUBCUT SCH ×7 (07:57→21:13)
[2019-04-04] MEDS ORDERED: methylPREDNISolone SOD SUC 40 MG/1 ML VIAL IV SCH (09:00)
[2019-04-04] MEDS ORDERED: amLODIPine 10 MG TABLET PO SCH (09:00)
[2019-04-04] MEDS: INSULIN GLARGINE 100 UNIT/ML SUBCUT SCH (09:13)
[2019-04-04] MEDS: DOCUSATE SODIUM 100 MG CAPSULE PO SCH ×2 (09:14→21:08)
[2019-04-04] MEDS: GABAPENTIN 100 MG CAPSULE PO SCH ×3 (09:14→21:09)
[2019-04-04] MEDS: ASPIRIN EC 81 MG TABLET PO SCH (09:14)
[2019-04-04] MEDS: THIAMINE 100 MG TABLET PO SCH (09:14)
[2019-04-04] MEDS: FOLIC ACID 1 MG TABLET PO SCH (09:14)
[2019-04-04] MEDS: lisinopriL 20 MG TABLET PO SCH (09:14)
[2019-04-04] MEDS: METOPROLOL SUCCINATE XL 50 MG TABLET PO SCH ×2 (09:14→21:09)
[2019-04-04] MEDS: CLOPIDOGREL 75 MG TABLET PO SCH (09:14)
[2019-04-04] MEDS: FUROSEMIDE 40 MG/4 ML VIAL IV SCH (09:16)
[2019-04-04] MEDS: MENTHOL/ZINC OXIDE OINT 71 GM JAR TOP SCH ×2 (09:16→21:16)
[2019-04-04] MEDS: ITRACONAZOLE 100 MG CAPSULE PO SCH (10:15)
[2019-04-04] MEDS: ENOXAPARIN 40 MG/0.4 ML SYRINGE SUBCUT SCH (21:12)
[2019-04-05 02:52] LABS: Basophils % 0.2 % (0.0-0.8); Hematocrit 29.4 VOL% (42.0-52.0); Hemoglobin 9.3 GM/DL (14.0-18.0); Immature Granulocytes % 1.2 %; Immature Granulocytes Absolute 0.22 #; Lymphocytes # 1.2 10*3/uL (1.4-4.0); Lymphocytes % 6.7 % (21.2-54.2); Mean Corpuscular HGB Conc 31.6 GM/DL (32-36); Mean Corpuscular Volume 89.4 FL (87-102); Monocytes % 4.2 % (1.7-12.7); NRBC # 0.02 10*3/uL; Neutrophils % 87.7 % (38.7-73.9); Platelet Count 229 T/CUMM (130-400); Red Blood Count 3.29 MC/CUMM (3.8-5.5); Red Cell Distribution Width 16.9 % (9.3-17.3); White Blood Count 17.8 T/CUMM (4-12)
[2019-04-05 03:07] LABS: INR 1.1; PT Patient Result 11.7 SECS (9.6-12.2)
[2019-04-05] MEDS: MORPHINE 4 MG/1 ML VIAL IV PRN ×4 (03:21→21:04)
[2019-04-05] MEDS: MEROPENEM 500 MG in SODIUM CHLORIDE 0.9% 100 ML IV SCH ×4 (03:21→21:04)
[2019-04-05] MEDS: lisinopriL 20 MG TABLET PO SCH (09:00)
[2019-04-05] MEDS: THIAMINE 100 MG TABLET PO SCH (09:01)
[2019-04-05] MEDS: METOPROLOL SUCCINATE XL 50 MG TABLET PO SCH ×2 (09:01→21:04)
[2019-04-05] MEDS: CLOPIDOGREL 75 MG TABLET PO SCH (09:01)
[2019-04-05] MEDS: DOCUSATE SODIUM 100 MG CAPSULE PO SCH ×2 (09:01→21:03)
[2019-04-05] MEDS: predniSONE 20 MG TABLET PO SCH (09:01)
[2019-04-05] MEDS: FOLIC ACID 1 MG TABLET PO SCH (09:01)
[2019-04-05] MEDS: ASPIRIN EC 81 MG TABLET PO SCH (09:02)
[2019-04-05] MEDS: GABAPENTIN 100 MG CAPSULE PO SCH ×3 (09:02→21:03)
[2019-04-05] MEDS: FUROSEMIDE 40 MG/4 ML VIAL IV SCH (09:04)
[2019-04-05] MEDS: INSULIN LISPRO 100 UNIT/ML SUBCUT SCH ×4 (09:07→16:56)
[2019-04-05] MEDS: MENTHOL/ZINC OXIDE OINT 71 GM JAR TOP SCH ×2 (09:07→21:04)
[2019-04-05] MEDS: INSULIN GLARGINE 100 UNIT/ML SUBCUT SCH (09:07)
[2019-04-05] MEDS: ENOXAPARIN 40 MG/0.4 ML SYRINGE SUBCUT SCH (21:03)
[2019-04-06] MEDS: MORPHINE 4 MG/1 ML VIAL IV PRN ×5 (01:30→20:59)
[2019-04-06] MEDS: MEROPENEM 500 MG in SODIUM CHLORIDE 0.9% 100 ML IV SCH ×4 (02:51→21:00)
[2019-04-06 07:20] LABS: Basophils % 0.1 % (0.0-0.8); Eosinophils # 0.1 10*3/uL (0.0-0.87); Eosinophils % 0.4 % (0.00-10.9); Hematocrit 29.7 VOL% (42.0-52.0); Hemoglobin 9.1 GM/DL (14.0-18.0); Immature Granulocytes % 1.5 %; Immature Granulocytes Absolute 0.21 #; Lymphocytes # 1.1 10*3/uL (1.4-4.0); Lymphocytes % 7.6 % (21.2-54.2); Mean Corpuscular HGB Conc 30.6 GM/DL (32-36); Mean Corpuscular Volume 90.8 FL (87-102); Mean Platelet Volume 11.2 FL (9.6-12.0); Monocytes % 4.6 % (1.7-12.7); NRBC # 0.02 10*3/uL; Neutrophils % 85.8 % (38.7-73.9); Platelet Count 202 T/CUMM (130-400); Red Blood Count 3.27 MC/CUMM (3.8-5.5); Red Cell Distribution Width 17.1 % (9.3-17.3)
[2019-04-06 07:46] LABS: Osmolality,Calculated 309.6 MOS/KG (273-304)
[2019-04-06] MEDS ORDERED: ITRACONAZOLE 100 MG CAPSULE PO SCH (09:00)
[2019-04-06] MEDS: ASPIRIN EC 81 MG TABLET PO SCH (09:09)
[2019-04-06] MEDS: METOPROLOL SUCCINATE XL 50 MG TABLET PO SCH ×2 (09:09→20:59)
[2019-04-06] MEDS: predniSONE 20 MG TABLET PO SCH (09:09)
[2019-04-06] MEDS: DOCUSATE SODIUM 100 MG CAPSULE PO SCH ×2 (09:09→20:59)
[2019-04-06] MEDS: lisinopriL 20 MG TABLET PO SCH (09:10)
[2019-04-06] MEDS: FOLIC ACID 1 MG TABLET PO SCH (09:10)
[2019-04-06] MEDS: GABAPENTIN 100 MG CAPSULE PO SCH ×3 (09:10→20:59)
[2019-04-06] MEDS: THIAMINE 100 MG TABLET PO SCH (09:10)
[2019-04-06] MEDS: FUROSEMIDE 40 MG/4 ML VIAL IV SCH (09:12)
[2019-04-06] MEDS: MENTHOL/ZINC OXIDE OINT 71 GM JAR TOP SCH ×2 (09:16→21:00)
[2019-04-06] MEDS: INSULIN LISPRO 100 UNIT/ML SUBCUT SCH ×3 (09:18→16:45)
[2019-04-06] MEDS: INSULIN GLARGINE 100 UNIT/ML SUBCUT SCH (09:49)
[2019-04-06] MEDS: MAGNESIUM OXIDE 400 MG TABLET PO SCH ×2 (10:38→20:59)
[2019-04-06] MEDS: SPIRONOLACTONE 25 MG TABLET PO SCH ×2 (10:38→20:59)
[2019-04-06] MEDS: CLOPIDOGREL 75 MG TABLET PO SCH (10:38)
[2019-04-06] MEDS: ALBUMIN 25% 25 GM in PREMIX 1 EACH IV SCH ×2 (11:14→18:07)
[2019-04-06] MEDS: ENOXAPARIN 40 MG/0.4 ML SYRINGE SUBCUT SCH (20:59)
[2019-04-07] MEDS: MORPHINE 4 MG/1 ML VIAL IV PRN ×3 (03:08→15:43)
[2019-04-07] MEDS: MEROPENEM 500 MG in SODIUM CHLORIDE 0.9% 100 ML IV SCH ×4 (03:09→21:59)
[2019-04-07] MEDS: ALBUMIN 25% 25 GM in PREMIX 1 EACH IV SCH (04:20)
[2019-04-07] MEDS: MAGNESIUM SULF RIDER 2 GM in PREMIX 1 EACH IV PRN (07:28)
[2019-04-07] MEDS: INSULIN LISPRO 100 UNIT/ML SUBCUT SCH ×3 (09:33→16:40)
[2019-04-07] MEDS: INSULIN GLARGINE 100 UNIT/ML SUBCUT SCH (09:33)
[2019-04-07] MEDS: FUROSEMIDE 40 MG/4 ML VIAL IV SCH ×2 (09:34→16:41)
[2019-04-07] MEDS: MAGNESIUM OXIDE 400 MG TABLET PO SCH ×2 (09:37→21:59)
[2019-04-07] MEDS: METOPROLOL SUCCINATE XL 50 MG TABLET PO SCH ×2 (09:37→21:59)
[2019-04-07] MEDS: CLOPIDOGREL 75 MG TABLET PO SCH (09:37)
[2019-04-07] MEDS: THIAMINE 100 MG TABLET PO SCH (09:37)
[2019-04-07] MEDS: predniSONE 20 MG TABLET PO SCH (09:37)
[2019-04-07] MEDS: ASPIRIN EC 81 MG TABLET PO SCH (09:37)
[2019-04-07] MEDS: FOLIC ACID 1 MG TABLET PO SCH (09:37)
[2019-04-07] MEDS: DOCUSATE SODIUM 100 MG CAPSULE PO SCH ×2 (09:38→21:59)
[2019-04-07] MEDS: GABAPENTIN 100 MG CAPSULE PO SCH ×4 (09:38→21:59)
[2019-04-07] MEDS: SPIRONOLACTONE 25 MG TABLET PO SCH ×2 (09:38→21:59)
[2019-04-07] MEDS: lisinopriL 20 MG TABLET PO SCH (10:04)
[2019-04-07] MEDS: MENTHOL/ZINC OXIDE OINT 71 GM JAR TOP SCH ×2 (10:04→22:02)
[2019-04-07] MEDS ORDERED: traZODone 50 MG TABLET PO PRN (21:29)
[2019-04-07] MEDS: ENOXAPARIN 40 MG/0.4 ML SYRINGE SUBCUT SCH (22:00)
[2019-04-08] MEDS: MEROPENEM 500 MG in SODIUM CHLORIDE 0.9% 100 ML IV SCH ×2 (02:16→09:02)
[2019-04-08 06:10] LABS: Calcium 7.1 MG/DL (8.5-10.1)
[2019-04-08] MEDS: lisinopriL 20 MG TABLET PO SCH (09:00)
[2019-04-08] MEDS: DOCUSATE SODIUM 100 MG CAPSULE PO SCH (09:00)
[2019-04-08] MEDS: MAGNESIUM OXIDE 400 MG TABLET PO SCH (09:00)
[2019-04-08] MEDS: FOLIC ACID 1 MG TABLET PO SCH (09:01)
[2019-04-08] MEDS: METOPROLOL SUCCINATE XL 50 MG TABLET PO SCH (09:01)
[2019-04-08] MEDS: GABAPENTIN 100 MG CAPSULE PO SCH (09:01)
[2019-04-08] MEDS: predniSONE 20 MG TABLET PO SCH (09:01)
[2019-04-08] MEDS: ASPIRIN EC 81 MG TABLET PO SCH (09:01)
[2019-04-08] MEDS: CLOPIDOGREL 75 MG TABLET PO SCH (09:01)
[2019-04-08] MEDS: SPIRONOLACTONE 25 MG TABLET PO SCH (09:01)
[2019-04-08] MEDS: THIAMINE 100 MG TABLET PO SCH (09:01)
[2019-04-08] MEDS: FUROSEMIDE 40 MG/4 ML VIAL IV SCH (09:02)
[2019-04-08] MEDS: INSULIN LISPRO 100 UNIT/ML SUBCUT SCH ×2 (09:05→12:13)
[2019-04-08] MEDS: INSULIN GLARGINE 100 UNIT/ML SUBCUT SCH (09:05)
[2019-04-08] MEDS: MENTHOL/ZINC OXIDE OINT 71 GM JAR TOP SCH (09:06)
[2019-04-08 11:50] VITALS: BP 125/75
== END 2019-04-08 14:34 | disposition home health service (06) | DRG 177 ==
LOC: N.ED 18:32 → SUATTDRO 03-22 03:04 → N.EDINP 03-22 03:04 → N.CC 03-22 03:43 → N.5E 03-22 18:13 → N.ICU 03-23 17:28 → N.2E 03-29 23:22
PROVIDERS: ADMIT Internal Medicine Geriatric Medicine; ATTEND Family Medicine